=== PATIENT | male | born 1945 | race Caucasian/White ===

== ENCOUNTER 2018-08-11 07:06 | Inpatient (IN) | payer BC, MEDICARE, OTHER ==
[~2018-08-11] VITALS: Ht 175.3 cm; Wt 112.0 kg
[~2018-08-11 07:06] MED LIST: ALB6.7R INH; ALE70 PO; ASPI-715 PO; CALC500T76 PO; CIP500 PO; ERG400 PO; FLUT10SP NS; LOSA-54 PO; NITROGLYCERINE SL; OXYGEN INH; PER PO; PHENA100 PO; PRAS10TA4 PO; ROS10 PO; SYMBICORT IH; TRIO80T TOP; ZOLP-350 PO
--- NOTE | 2018-08-11 07:09 | ER Report ---
History and Physical Time Seen By MD: 07:08 HPI/ROS CHIEF COMPLAINT: Cough, fever, shortness of breath HISTORY OF PRESENT ILLNESS: Patient is a 72-year-old male with a history of COPD on baseline 2 L nasal cannula requiring increased to 5 L saturating at approximately 89% with increased work of breathing. Patient reports several days of illness however has had worsening respiratory distress, fevers starting over the last 24 hours. Patient is febrile at time of evaluation REVIEW OF SYSTEMS: Constitutional: + fever, + chills. Eyes: No discharge. ENT: No sore throat. Cardiovascular: + chest tightness no palpitations. Respiratory: + cough, + shortness of breath. Gastrointestinal: No abdominal pain, no vomiting. Genitourinary: No hematuria. Musculoskeletal: No back pain. Skin: No rashes. Neurological: No headache. Allergies: Coded Allergies: influenza virus vaccine, live atten (Verified Allergy, Unknown, 08/11/18) Home Meds Reported Medications Vit A/Vit C/Vit E/Zinc/Copper (PRESERVISION AREDS SOFTGEL) 1 Each Capsule, 1 EACH PO DAILY, CAPSULE 08/11/18 Tiotropium [place] (SPIRIVA) 18 Mcg/Cap Inh, 1 PUFF INH QDAY, INH 08/11/18 Budesonide/Formoterol Fumarate (SYMBICORT 80-4.5 MCG INHALER) 10.2 Gm Hfa.aer.ad, 2 PUFF IH BID 08/11/18 Nitroglycerin (NITROGLYCERIN) 0.4 Mg Tab.subl, 0.4 MG SL Q5MIN PRN for CHEST PAIN 08/11/18 Melatonin/Pyridoxine Hcl (B6) (MELATONIN 10 MG TABLET) 1 Each Tab.mphase, 3 EACH PO QHS 08/11/18 Amlodipine Besylate (AMLODIPINE BESYLATE) 10 Mg Tablet, 0.5 TAB PO QDAY, TAB 08/11/18 Ergocalciferol (Vitamin D2) (VITAMIN D2) 50,000 Unit Capsule, 51799 UNIT PO QWEEK, CAPSULE 08/11/18 Acetaminophen/Diphenhydramine (ACETAMINOPHEN PM CAPLET) 1 Each Tablet, 1 EACH PO QHS, TAB 08/11/18 Guaifenesin (MUCINEX) 100 Mg Gran.pack, 100 MG PO BID 08/11/18 Losartan Potassium (LOSARTAN POTASSIUM) 100 Mg Tablet, 100 MG PO QDAY 08/11/18 Prazosin Hcl (PRAZOSIN HCL) 2 Mg Capsule, 4 MG PO QHS, CAPSULE 08/11/18 Mirtazapine (MIRTAZAPINE) 15 Mg Tab.rapdis, 7.5 MG PO HS 08/11/18 Sertraline Hcl (SERTRALINE HCL) 100 Mg Tablet, 2 TAB PO QDAY, TAB 08/11/18 Atorvastatin (LIPITOR) 80 Mg Tab, 0.5 TAB PO QDAY, TAB 08/11/18 Oxygen (Oxygen) 2 L Inha, 0 INH PRN, 0 Refills 04/07/10 Calcium (Calcium) 500 Mg Tablet, 250 MG PO DAILY, 0 Refills 04/07/10 Aspirin (Aspirin) 81 Mg Tablet.dr, 81 MG PO DAILY, 0 Refills 04/07/10 Fluticasone Furoate (Veramyst) 10 Gm Eva.susp, 10 GM NS QID PRN, 0 Refills 04/07/10 Albuterol Sulfate (Proventil Hfa) 6.7 Gm Aer.w.adap, 1 - 2 PUFF INH QID PRN, 0 Refills 04/07/10 Triamcinolone Acet (Kenalog 0.1%) 80 Gm Cr, 0 TOP BID, 0 Refills APPLY TO AFFECTED AREAS 04/07/10 Discontinued Reported Medications [areds 2] No Conflict Check, 1 TAB PO BID 08/11/18 Amlodipine Besylate (AMLODIPINE BESYLATE) 5 Mg Tablet, 1 TAB PO QDAY, TAB 08/11/18 Melatonin (MELATONIN) 5 Mg Tablet, 10 MG PO HS 08/11/18 Phenazopyridine Hcl (Pyridium) 100 Mg Tab, 100 MG PO TID, #20 0 Refills 04/07/10 Oxycodone/Acetaminophen (OXYCODONE/ACETAMINOPHEN 5MG/325 MG) 5 Mg/325 Mg Tab, 1 - 2 TAB PO Q4-6H PRN, #20 0 Refills 04/07/10 Ciprofloxacin (Cipro) 500 Mg Tab, 500 MG PO BIDAC, 0 Refills 04/07/10 Prasugrel Hydrochloride (Effient) 10 Mg Tablet, 10 MG PO DAILY, 0 Refills 04/07/10 Vitamin D (Vitamin D) 400 Intlu Tab, 800 INTLU PO DAILY, 0 Refills 04/07/10 [Nitroglycerine] No Conflict Check, 0.4 MG SL, 0 Refills 04/07/10 Losartan/Hydrochlorothiazide (Losartan-Hctz 100-25 Mg Tab) 1 Each Tablet, 1 EACH PO DAILY, 0 Refills 04/07/10 Rosuvastatin Calcium (Crestor) 10 Mg Tablet, 10 MG PO DAILY, 0 Refills 04/07/10 [Symbicort] No Conflict Check, IH BID, 0 Refills 04/07/10 Alendronate Sodium (Fosamax) 70 Mg Tab, 70 MG PO QWK, #1 0 Refills 04/07/10 Zolpidem Tartrate (Ambien) 10 Mg Tablet, 10 MG PO QHS, 0 Refills 04/07/10 Hx Substance Use Disorder: No Hx Alcohol Use: Yes (3 BEERS/ WEEK) Constitutional Vital Sign - Last 24 Hours 08/11/18 08/11/18 08/11/18 08/11/18 07:06 07:11 07:14 07:18 Temp 99.7 Pulse 89 103 Resp 28 28 B/P (MAP) 157/91 (113) 157/91 Pulse Ox 90 84 O2 Delivery Nasal Cannula Nasal Cannula O2 Flow Rate 5 4.0 08/11/18 08/11/18 08/11/18 08/11/18 07:20 07:30 07:35 07:35 Pulse 99 Resp 18 B/P (MAP) 169/94 (119) 153/86 (108) Pulse Ox 91 O2 Delivery Nasal Cannula O2 Flow Rate 5.0 08/11/18 08/11/18 08/11/18 08/11/18 07:36 07:41 07:43 07:45 Pulse 82 86 104 Resp 25 22 18 B/P (MAP) 152/78 (102) Pulse Ox 90 94 O2 Delivery Nasal Cannula Nasal Cannula O2 Flow Rate 5 5 08/11/18 08/11/18 08/11/18 08:00 08:11 08:30 Pulse 93 Resp 29 B/P (MAP) 150/76 (100) 151/113 (126) Pulse Ox 91 O2 Delivery Nasal Cannula O2 Flow Rate 5 Physical Exam General Appearance: The patient is alert, has no immediate need for airway protection and no signs of toxicity. Moderate distress secondary to difficulty breathing Eyes: Pupils equal and round no pallor or injection. ENT, Mouth: Mucous membranes are moist. Respiratory: + Course breath sounds bilaterally, tachypnea Cardiovascular: Tachycardic Gastrointestinal: Abdomen is soft and non tender, no masses, bowel sounds normal. Neurological: No focal neurological deficits Skin: Warm and dry, no rashes. Musculoskeletal: Neck is supple non tender. Extremities are nontender, nonswollen and have full range of motion. DIFFERENTIAL DIAGNOSIS: After history and physical exam differential diagnosis was considered for shortness of breath including but not limited to pulmonary infectious process, COPD, asthma, pulmonary embolus and congestive heart failure. Medical Decision Making Data Points Result Diagram: 08/12/18 0549 08/12/18 0549 Laboratory Hematology Test 08/11/18 07:16 08/11/18 07:20 B-Type Natriuretic Peptide 109 pg/ml (0-100) Influenza Virus Type A (PCR) Positive (NEGATIVE) Influenza Virus Type B (PCR) Negative (NEGATIVE) Chemistry Test 08/11/18 07:16 08/11/18 07:20 B-Type Natriuretic Peptide 109 pg/ml (0-100) Influenza Virus Type A (PCR) Positive (NEGATIVE) Influenza Virus Type B (PCR) Negative (NEGATIVE) EKG/Imaging Imaging Location: [facility] Patient: Srinivas Martinez : 1945 Visit/Account:[id number] Date of Sevice: 08/11/2018 CHEST SINGLE AP Indication: Respiratory distress. Comparison: None available Findings: There are mild perihilar and infrahilar interstitial and airspace opacities seen. In the acute setting, differential would favor developing interstitial edema. No consolidation or air bronchograms. No definite pleural effusion or pneumothorax. Heart size is mildly enlarged. Atherosclerotic calcifications are seen in the aortic arch. There are multiple old healed left-sided rib fractures. IMPRESSION: 1. Mild perihilar and infrahilar interstitial and airspace opacities. Comparison with old studies would be useful. If acute, consider interstitial edema or interstitial infiltrate. 2. Mild cardiac enlargement. ED Course/Re-evaluation ED Course Patient is a 72-year-old male here with increased work of breathing, increased oxygen demand positive for influenza with tachypnea. Due to the patient's increased work of breathing, significant comorbidities, patient was admitted to hospitalist service for further optimization and care. Patient did have some improvement with nebulizer treatment. Patient was admitted to hospitalist service with Dr. Patti Mooney Decision to Disposition Date: Aug 11, 2018 Decision to Disposition Time: 11:00 Depart Departure Latest Vital Signs Vital Signs Date Time Temp Pulse Resp B/P (MAP) Pulse Ox O2 Delivery O2 Flow Rate FiO2 08/11/18 08:30 151/113 (126) 08/11/18 08:11 93 29 91 Nasal Cannula 5 08/11/18 07:14 99.7 Impression: Primary Impression: Influenza Condition: Improved Disposition: Admitted from ER DELANO BRAUN DO Aug 11, 2018 07:09
[2018-08-11] MEDS ORDERED: NS(*) 0.9% 1000 ML BAG 1,000 ML IV ONE (07:13)
[2018-08-11] MEDS ORDERED: ALBUTEROL/IPRATROPIUM 3 ML NEB NEB SCH (07:15)
[2018-08-11 07:23] LABS: PLATELET COUNT, AUTOMATED 134 K/uL (150-450)
[2018-08-11] MEDS ORDERED: MELA5TAB6 PO (07:29)
[2018-08-11] MEDS ORDERED: ATR80PT PO (07:29)
--- NOTE | 2018-08-11 07:29 | EKG ---
[place] [facility] [place] ANNETTE MULLEN : [id number] MR: [id number] V: [id number] EXAM DATE: ORDERING PHYSICIAN: DELANO BRAUN TECHNOLOGIST: OMAR Test Reason : CP, SOB Blood Pressure : / mmHG Vent. Rate : 116 BPM Atrial Rate : 116 BPM P-R Int : 148 ms QRS Dur : 092 ms QT Int : 348 ms P-R-T Axes : 040 084 076 degrees QTc Int : 483 ms Sinus tachycardia with frequent premature ventricular complexes Nonspecific ST abnormality Abnormal ECG No previous ECGs available Confirmed by JOYA ASCENCIO ([id number]) on 08/11/2018 3:59:33 PM Referred By: KADE Confirmed By:JOYA ASCENCIO
[2018-08-11] MEDS ORDERED: PRAZ2CAP26 PO (07:36)
[2018-08-11] MEDS ORDERED: SERT-181 PO (07:36)
[2018-08-11] MEDS ORDERED: AMLO-125 PO (07:36)
[2018-08-11] MEDS ORDERED: MIRT15TA11 PO (07:36)
[2018-08-11] MEDS ORDERED: LOSA100T75 PO (07:36)
--- NOTE | 2018-08-11 08:04 | RADIOLOGY IMAGING REPORT ---
[place] [facility] [place] Srinivas Martinez : 1945 MR: [id number] V: [id number] EXAM DATE: ORDERING PHYSICIAN: DELANO BRAUN TECHNOLOGIST: Location: [facility] [place] Patient: Srinivas Martinez : 1945 Visit/Account:[id number] Date of Sevice: 08/11/2018 CHEST SINGLE AP Indication: Respiratory distress. Comparison: None available Findings: There are mild perihilar and infrahilar interstitial and airspace opacities seen. In the acute settin g, differential would favor developing interstitial edema. No consolidation or air bronchograms. No definite pleural effusion or pneumothorax. Heart size is mildly enlarged. Atherosclerotic calcifications are seen in the aortic arch. There are multiple old healed left-sided rib fractures. IMPRESSION: 1. Mild perihilar and infrahilar interstitial and airspace opacities. Comparison with old studies wou ld be useful. If acute, consider interstitial edema or interstitial infiltrate. 2. Mild cardiac enlargement. Report Dictated By: Tien Flores at 08/11/2018 7:58 AM Report E-Signed By: Tien Flores at 08/11/2018 8:00 AM WSN:[id number]
[2018-08-11 08:55] VITALS: BP 145/73
[2018-08-11] MEDS ORDERED: GUAI100G4 PO (09:18)
[2018-08-11] MEDS ORDERED: BUDE10.25 IH (09:18)
[2018-08-11] MEDS ORDERED: AMLO-127 PO (09:18)
[2018-08-11] MEDS ORDERED: NITR0.4T3 SL (09:18)
[2018-08-11] MEDS ORDERED: ERGO500037 PO (09:18)
[2018-08-11] MEDS ORDERED: ACET-2708 PO (09:18)
[2018-08-11] MEDS ORDERED: TIO18R INH (09:18)
[2018-08-11] MEDS ORDERED: areds 2 PO (09:18)
[2018-08-11] MEDS ORDERED: MELA1TAB2 PO (09:18)
[2018-08-11] MEDS ORDERED: MIRTAZAPINE 15 MG TAB PO PRN (11:00)
[2018-08-11] MEDS ORDERED: VIT1CAPS34 PO (11:00)
[2018-08-11] MEDS: OSELTAMIVIR PHOS 75 MG CAP PO SCH ×2 (11:02→20:42)
[2018-08-11] MEDS: NS(*) 0.9% 1000 ML BAG 1,000 ML IV PRN (11:18)
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
[2018-08-11] MEDS: ALBUTEROL/IPRATROPIUM 3 ML NEB NEB SCH ×2 (14:04→17:17)
[2018-08-11 14:16] VITALS: BP 150/82
[2018-08-11] MEDS: ACETAMINOPHEN 325 MG TAB PO PRN (14:19)
--- NOTE | 2018-08-11 14:41 | Miscellaneous Provider Note ---
Miscellaneous Provider Note Note Repeat troponin increased from 0.053 to 0.212. Discussed with cardiology transmission superintendent at [facility]. EKGs and troponin lab work sent via fax for review. The reel system operator felt this was likely due to strain from influenza, tachycardia and hypoxia. Recommended trending troponin and if it doesn't change, monitoring him here. If his troponin continues to increase, can reconsult with cardiology. Also monitor for chest pain and trend EKGs as warranted. The patient states he had some chest pressure this am, but currently is pain free. Will monitor. JOYA SAUCEDA MD Aug 11, 2018 14:41
--- NOTE | 2018-08-11 14:59 | Antimicrobial Stewardship ---
Antimicrobial Stewardship Empiricly appropriate: Yes Comment On Tamiflu 75 mg po BID for Influenza A virus. Organism identified: Yes (Flu screen positive for Influenza A.) Renal/Hepatic dosing: Yes Comment Crcl 105 ml/min (AjBW) so dose appropriate. Comment Possible cardiac issues (troponin elevated). Most likely due to Influenza but if true cardiac event may want to reevaluate Tamiflu as it should be used with caution in patients with cardiac disorders, Determine standard duration: usually 5 days JANE CALDERÓN Aug 11, 2018 14:59
--- NOTE | 2018-08-11 15:11 | RADIOLOGY IMAGING REPORT ---
[place] [facility] [place] Srinivas Martinez : 1945 MR: [id number] V: [id number] EXAM DATE: ORDERING PHYSICIAN: JOYA SAUCEDA TECHNOLOGIST: Location: Patient: Srinivas Martinez : 1945 Visit/Account:[id number] Date of Sevice: 08/11/2018 Examination: CHEST SINGLE AP Comparison: Earlier the same day. History: Worsening influenza with increased oxygen needs. Findings: Cardiac and hilar contours prominent but unchanged. Diffuse interstitial thickening and peribronchial inflammation is redemonstrated and minimally change d since earlier today. Indistinct regions of increased parenchymal density at both lung bases as befo re. No definite new or enlarging consolidation. No pneumothorax or effusion. Osseous structures are intact. IMPRESSION: Unchanged chest. Given the history, diffuse interstitial and peribronchial inflammation is suggestive of an acute or acute on chronic bronchitis. Indistinct regions of patchy density at the lung bases i s favored to be atelectasis although correlation with any evidence of a developing superimposed pneum onia is recommended. Report Dictated By: Aleksandr Sanchez MD at 08/11/2018 3:04 PM Report E-Signed By: Aleksandr Sanchez MD at 08/11/2018 3:07 PM WSN:[id number]
[2018-08-11] MEDS ORDERED: IBUPROFEN 200 MG TAB PO PRN (15:20)
--- NOTE | 2018-08-11 15:53 | EKG ---
FACILITY: [facility] PATIENT NAME: ANNETTE MULLEN : [id number] MR: [id number] V: [id number] EXAM DATE: ORDERING PHYSICIAN: JOYA SAUCEDA TECHNOLOGIST: OMAR Test Reason : INCREASED TROPONIN Blood Pressure : / mmHG Vent. Rate : 095 BPM Atrial Rate : 095 BPM P-R Int : 144 ms QRS Dur : 092 ms QT Int : 370 ms P-R-T Axes : 033 087 079 degrees QTc Int : 464 ms Sinus rhythm with premature atrial complexes Nonspecific ST abnormality Abnormal ECG When compared with ECG of 11-AUG-2018 07:12, premature ventricular complexes are no longer present premature atrial complexes are now present Confirmed by JOYA ASCENCIO ([id number]) on 08/11/2018 3:57:37 PM Referred By: KOMAL Confirmed By:JOYA ASCENCIO
[2018-08-11] MEDS ORDERED: AZITHROMYCIN(*) 500 MG 500 MG in NS(*) 0.9% 250 ML BAG 250 ML IVPB SCH (16:00)
[2018-08-11] MEDS ORDERED: cefTRIAXone 1 GM VIAL IVP SCH (17:00)
[2018-08-11] MEDS: BUDESO/FORMOT 80/4.5 MCG 6.9GM INH SCH (17:17)
[2018-08-11 19:29] VITALS: BP 132/70
--- NOTE | 2018-08-11 19:59 | Miscellaneous Provider Note ---
Miscellaneous Provider Note Note Repeat troponin at 1900 trending down at 0.196. Will repeat a troponin with am labs. The patient is feeling better and denies chest pain. Continue to monitor closely. He does want to be a full code. JOYA SAUCEDA MD Aug 11, 2018 19:59
[2018-08-11] MEDS: PRAZOSIN HCL 1 MG CAP PO SCH (20:42)
[2018-08-11] MEDS: ATORVASTATIN 40 MG TAB PO SCH (20:42)
[2018-08-11] MEDS: MELATONIN 3 MG TAB PO SCH (20:48)
[2018-08-11] MEDS: LEVALBUTEROL 0.63 MG/3 ML NEB NEB PRN (20:59)
[2018-08-11 23:05] VITALS: BP 141/76
[2018-08-12] MEDS: ACETAMINOPHEN 325 MG TAB PO PRN ×2 (00:23→19:20)
[2018-08-12] MEDS: LEVALBUTEROL 0.63 MG/3 ML NEB NEB PRN ×3 (00:27→19:47)
[2018-08-12] MEDS: NS(*) 0.9% 1000 ML BAG 1,000 ML IV PRN (02:59)
[2018-08-12 03:00] VITALS: BP 112/66
[2018-08-12] MEDS: BUDESO/FORMOT 80/4.5 MCG 6.9GM INH SCH ×2 (05:22→17:09)
[2018-08-12 06:11] LABS: PLATELET COUNT, AUTOMATED 105 K/uL (150-450)
[2018-08-12 06:56] VITALS: BP 107/64
[2018-08-12] MEDS: amLODIPine BESYL(*) 5 MG TAB PO SCH (09:00)
[2018-08-12] MEDS: CEFDINIR 300 MG CAP PO SCH ×2 (09:10→20:56)
[2018-08-12] MEDS: ASPIRIN 81 MG ENTERIC COATED PO SCH (09:10)
[2018-08-12] MEDS: AZITHROMYCIN 250 MG TAB PO SCH (09:10)
[2018-08-12] MEDS: SERTRALINE HCL 50 MG TAB PO SCH (09:10)
[2018-08-12] MEDS: CALCIUM OYSTER SHELL 500MG TAB PO SCH (09:10)
[2018-08-12] MEDS: LOSARTAN POTASSIUM 50 MG TAB PO SCH (09:10)
[2018-08-12] MEDS: ENOXAPARIN 40 MG/0.4ML SYR SC SCH (09:11)
[2018-08-12] MEDS: BETA-CAROTENE(A) & E/MIN TAB PO SCH (09:11)
[2018-08-12] MEDS: OSELTAMIVIR PHOS 75 MG CAP PO SCH ×2 (09:11→20:56)
[2018-08-12] MEDS: FLUTICASONE PROP 0.05% 16 GM SCH (09:12)
--- NOTE | 2018-08-12 09:24 | Hospitalist Progress Note ---
Subjective Progress Notes Subjective This patient was admitted for pneumonia and influenza. He had no acute events overnight. Patient Complains of: Cardiovascular: No: Chest Pain Respiratory: No: Shortness of Breath Physical Exam Vital Signs Date Time Temp Pulse Resp B/P (MAP) Pulse Ox O2 Delivery O2 Flow Rate FiO2 08/12/18 08:28 93 Nasal Cannula 4.0 08/12/18 06:56 97.8 88 18 107/64 (78) 08/12/18 01:00 40.0 Intake and Output 08/12/18 07:00 Intake Total 2030 ml Balance 2030 ml Intake Oral 790 ml IV Total 1240 ml # Voids 3 # Emes[place] 1 Cardiovascular: Regular Rate and Rhythm Respiratory: Clear to Auscultation Result Diagram: 08/12/18 0549 08/12/1849 Assessment and Plan Problems: (1) FLU DUE TO IDENT NOVEL INFLUENZA A VIRUS W OTH RESP MANIFEST Status: Acute Assessment & Plan: He did test positive for influenza A. He has been started on Tamiflu. (2) Bacterial pneumonia Assessment & Plan: A chest x-ray did show bilateral hilar infiltrates. He was started on empiric treatment with ceftriaxone and azithromycin. We have converted him to oral treatment with cefdinir and azithromycin. (3) Elevated troponin Status: Acute Assessment & Plan: He did have a mild elevation of his troponin, but no significant EKG changes. His levels trended down. This was likely secondary to the strain of his illness. He may be considered for outpatient stress testing when he returns to [place]. (4) Hypoxia Status: Acute Assessment & Plan: O2 to keep sats 90% or greater. (5) COPD (chronic obstructive pulmonary disease) Status: Chronic Assessment & Plan: Continue Oxygen, Symbicort and Duonebs. (6) CAD (coronary artery disease) Status: Chronic Assessment & Plan: Continue ASA and losartan. (7) Hyperlipidemia Status: Chronic Assessment & Plan: Continue atorvastatin. (8) Hypertension Status: Chronic Assessment & Plan: Continue amlodipine, losartan and prazosin. (9) GREGORY on CPAP Status: Chronic Assessment & Plan: Will continue CPAP with O2. Exam Sepsis Risk: No Definite Risk KATHY PINA DO Aug 12, 2018 09:24
[2018-08-12] MEDS: TIOTROPIUM BROM INH 18 MCG/CAP INH SCH (11:11)
[2018-08-12 14:51] VITALS: BP 121/63
[2018-08-12 18:51] VITALS: BP 124/67
[2018-08-12] MEDS: ATORVASTATIN 40 MG TAB PO SCH (20:57)
[2018-08-12] MEDS: PRAZOSIN HCL 1 MG CAP PO SCH (20:58)
[2018-08-12] MEDS: MELATONIN 3 MG TAB PO SCH (20:59)
[2018-08-13 03:39] VITALS: BP 121/64
[2018-08-13] MEDS: BUDESO/FORMOT 80/4.5 MCG 6.9GM INH SCH ×2 (05:22→17:04)
[2018-08-13 07:47] VITALS: BP 153/64
[2018-08-13 08:50] LABS: PLATELET COUNT, AUTOMATED 110 K/uL (150-450)
[2018-08-13] MEDS: BETA-CAROTENE(A) & E/MIN TAB PO SCH (09:12)
[2018-08-13] MEDS: OSELTAMIVIR PHOS 75 MG CAP PO SCH ×2 (09:12→20:56)
[2018-08-13] MEDS: CALCIUM OYSTER SHELL 500MG TAB PO SCH (09:12)
[2018-08-13] MEDS: AZITHROMYCIN 250 MG TAB PO SCH (09:12)
[2018-08-13] MEDS: LOSARTAN POTASSIUM 50 MG TAB PO SCH (09:12)
[2018-08-13] MEDS: ASPIRIN 81 MG ENTERIC COATED PO SCH (09:12)
[2018-08-13] MEDS: CEFDINIR 300 MG CAP PO SCH ×2 (09:13→20:55)
[2018-08-13] MEDS: SERTRALINE HCL 50 MG TAB PO SCH (09:13)
[2018-08-13] MEDS: amLODIPine BESYL(*) 5 MG TAB PO SCH (09:13)
[2018-08-13] MEDS: predniSONE 20 MG TAB PO SCH (09:13)
[2018-08-13] MEDS: ENOXAPARIN 40 MG/0.4ML SYR SC SCH (09:14)
[2018-08-13] MEDS: FLUTICASONE PROP 0.05% 16 GM SCH (09:14)
--- NOTE | 2018-08-13 09:46 | Hospitalist Progress Note ---
Subjective Progress Notes Subjective He was admitted with Influenza. He has complaints of SOB this morning. He is still coughing up blood. Patient Complains of: Cardiovascular: No: Chest Pain Respiratory: No: Shortness of Breath Physical Exam Vital Signs Date Time Temp Pulse Resp B/P (MAP) Pulse Ox O2 Delivery O2 Flow Rate FiO2 08/13/18 03:39 98.4 72 20 121/64 (83) 94 Nasal Cannula 4.0 08/12/18 01:00 40.0 Intake and Output 08/13/18 07:00 Intake Total 686 ml Balance 686 ml Intake Oral 686 ml # Voids 2 General Appearance: Alert, Awake, No Acute Distress, Afebrile Cardiovascular: Regular Rate and Rhythm Respiratory: Other (expiratory wheezes, left base crackles) GI: Soft and Non-Tender Extremities: Warm, Perfused; No Edema Psych: Alert & Oriented X3, Appropriate Mood & Affect Result Diagram: 08/13/1884108/13/18841 Assessment and Plan Problems: (1) FLU DUE TO IDENT NOVEL INFLUENZA A VIRUS W OTH RESP MANIFEST Status: Acute Assessment & Plan: He did test positive for influenza A. He has been started on Tamiflu. (2) Bacterial pneumonia Assessment & Plan: A chest x-ray did show bilateral hilar infiltrates. He was started on empiric treatment with ceftriaxone and azithromycin. We have converted him to oral treatment with cefdinir and azithromycin. (3) Elevated troponin Status: Acute Assessment & Plan: He did have a mild elevation of his troponin, but no significant EKG changes. His levels trended down. This was likely secondary to the strain of his illness. He may be considered for outpatient stress testing when he returns to [place]. (4) Hypoxia Status: Acute Assessment & Plan: O2 to keep sats 90% or greater. (5) COPD (chronic obstructive pulmonary disease) Status: Chronic Assessment & Plan: Continue Oxygen, Symbicort and Duonebs. He is wheezing this morning, we will add steroids to help with inflammation. (6) CAD (coronary artery disease) Status: Chronic Assessment & Plan: Continue ASA and losartan. (7) Hyperlipidemia Status: Chronic Assessment & Plan: Continue atorvastatin. (8) Hypertension Status: Chronic Assessment & Plan: Continue amlodipine, losartan and prazosin. (9) GREGORY on CPAP Status: Chronic Assessment & Plan: Will continue CPAP with O2. Exam Sepsis Risk: No Definite Risk MG REILLY Aug 13, 2018 09:46
[2018-08-13] MEDS: TIOTROPIUM BROM INH 18 MCG/CAP INH SCH (12:25)
[2018-08-13 12:46] VITALS: BP 165/84
[2018-08-13] MEDS: LEVALBUTEROL 0.63 MG/3 ML NEB NEB PRN (17:04)
[2018-08-13 19:13] VITALS: BP 166/94
[2018-08-13] MEDS: MELATONIN 3 MG TAB PO SCH (20:55)
[2018-08-13] MEDS: ATORVASTATIN 40 MG TAB PO SCH (20:55)
[2018-08-13] MEDS: PRAZOSIN HCL 1 MG CAP PO SCH (20:56)
[2018-08-13 23:47] VITALS: BP 118/68
[2018-08-14 03:33] VITALS: BP 163/74
[2018-08-14] MEDS: BUDESO/FORMOT 80/4.5 MCG 6.9GM INH SCH (05:18)
[2018-08-14] MEDS: LEVALBUTEROL 0.63 MG/3 ML NEB NEB PRN (05:19)
[2018-08-14 07:46] VITALS: BP 146/74
[2018-08-14] MEDS: OSELTAMIVIR PHOS 75 MG CAP PO SCH (08:17)
[2018-08-14] MEDS: SERTRALINE HCL 50 MG TAB PO SCH (08:17)
[2018-08-14] MEDS: LOSARTAN POTASSIUM 50 MG TAB PO SCH (08:17)
[2018-08-14] MEDS: CEFDINIR 300 MG CAP PO SCH (08:17)
[2018-08-14] MEDS: FLUTICASONE PROP 0.05% 16 GM SCH (08:17)
[2018-08-14] MEDS: CALCIUM OYSTER SHELL 500MG TAB PO SCH (08:17)
[2018-08-14] MEDS: BETA-CAROTENE(A) & E/MIN TAB PO SCH (08:17)
[2018-08-14] MEDS: ENOXAPARIN 40 MG/0.4ML SYR SC SCH (08:18)
[2018-08-14] MEDS: predniSONE 20 MG TAB PO SCH (08:18)
[2018-08-14] MEDS: AZITHROMYCIN 250 MG TAB PO SCH (08:18)
[2018-08-14] MEDS: ASPIRIN 81 MG ENTERIC COATED PO SCH (08:18)
[2018-08-14] MEDS: amLODIPine BESYL(*) 5 MG TAB PO SCH (08:18)
[2018-08-14] MEDS ORDERED: AZIT-18 PO (09:34)
[2018-08-14] MEDS ORDERED: PRED20TA6 PO (09:34)
[2018-08-14] MEDS ORDERED: OSE75 PO (09:34)
[2018-08-14] MEDS ORDERED: CEF300 PO (09:34)
--- NOTE | 2018-08-14 09:38 | Hospitalist Depart ---
Discharge Summary Reason for Hosp/Final Diag: (1) FLU DUE TO IDENT NOVEL INFLUENZA A VIRUS W OTH RESP MANIFEST Status: Acute Hospital Course & Plan: He did test positive for influenza A. He has been started on Tamiflu. (2) Bacterial pneumonia Hospital Course & Plan: A chest x-ray did show bilateral hilar infiltrates. He was started on empiric treatment with ceftriaxone and azithromycin. We have converted him to oral treatment with cefdinir and azithromycin. (3) Elevated troponin Status: Acute Hospital Course & Plan: He did have a mild elevation of his troponin, but no significant EKG changes. His levels trended down. This was likely secondary to the strain of his illness. He will follow up as an outpatient for stress testing when he returns to [place]. (4) Hypoxia Status: Acute Hospital Course & Plan: O2 to keep sats 90% or greater. (5) COPD (chronic obstructive pulmonary disease) Status: Chronic Hospital Course & Plan: Continue Oxygen, Symbicort and Duonebs. He was wheezing 08/13, we added steroids to help with inflammation. (6) CAD (coronary artery disease) Status: Chronic Hospital Course & Plan: Continue ASA and losartan. (7) Hyperlipidemia Status: Chronic Hospital Course & Plan: Continue atorvastatin. (8) Hypertension Status: Chronic Hospital Course & Plan: Continue amlodipine, losartan and prazosin. (9) GREGORY on CPAP Status: Chronic Hospital Course & Plan: Will continue CPAP with O2. Departure Latest Vital Signs Vital Signs 08/12/18 08/14/18 08/14/18 08/14/18 01:00 05:20 07:46 08:07 Temp 98.1 Pulse 91 Resp 20 B/P (MAP) 146/74 (98) Pulse Ox 95 O2 Delivery Nasal Cannula O2 Flow Rate 3.0 FiO2 40.0 Weight (Pounds): 247 Result Diagram: 08/13/18 0842 08/13/18841 Condition: Improved Discharge: Home, Self Care Discharge Instructions Home Meds Active Scripts Azithromycin 250 Mg Tab (AZITHROMYCIN 250 MG TAB) 250 Mg Tablet, 250 MG PO QDAY for 2 Days, #2 TAB Prov:MG REILLYP 08/14/18 Oseltamivir Phosphate (TAMIFLU) 75 Mg Cap, 75 MG PO BID for 5 Days, #10 CAP Prov:MG REILLYP 08/14/18 Prednisone (PREDNISONE) 20 Mg Tablet, 40 MG PO QDAY for 3 Days, #6 TAB Prov:MG REILLY WINDOW [employer]ORATOR 08/14/18 Cefdinir 300 Mg Cap (OMNICEF 300 MG CAP (OR EQUIV)) 300 Mg Cap, 300 MG PO BID, #10 CAP Prov:MG REILLY WINDOW DECORATOR 08/14/18 Reported Medications Vit A/Vit C/Vit E/Zinc/Copper (PRESERVISION AREDS SOFTGEL) 1 Each Capsule, 1 EACH PO DAILY, CAPSULE 08/11/18 Tiotropium [place] (SPIRIVA) 18 Mcg/Cap Inh, 1 PUFF INH QDAY, INH 08/11/18 Budesonide/Formoterol Fumarate (SYMBICORT 80-4.5 MCG INHALER) 10.2 Gm Hfa.aer.ad, 2 PUFF IH BID 08/11/18 Nitroglycerin (NITROGLYCERIN) 0.4 Mg Tab.subl, 0.4 MG SL Q5MIN PRN for CHEST PAIN 08/11/18 Melatonin/Pyridoxine Hcl (B6) (MELATONIN 10 MG TABLET) 1 Each Tab.mphase, 3 EACH PO QHS 08/11/18 Amlodipine Besylate (AMLODIPINE BESYLATE) 10 Mg Tablet, 0.5 TAB PO QDAY, TAB 08/11/18 Ergocalciferol (Vitamin D2) (VITAMIN D2) 50,000 Unit Capsule, 12738 UNIT PO QWEEK, CAPSULE 08/11/18 Acetaminophen/Diphenhydramine (ACETAMINOPHEN PM CAPLET) 1 Each Tablet, 1 EACH PO QHS, TAB 08/11/18 Guaifenesin (MUCINEX) 100 Mg Gran.pack, 100 MG PO BID 08/11/18 Losartan Potassium (LOSARTAN POTASSIUM) 100 Mg Tablet, 100 MG PO QDAY 08/11/18 Prazosin Hcl (PRAZOSIN HCL) 2 Mg Capsule, 4 MG PO QHS, CAPSULE 08/11/18 Mirtazapine (MIRTAZAPINE) 15 Mg Tab.rapdis, 7.5 MG PO HS 08/11/18 Sertraline Hcl (SERTRALINE HCL) 100 Mg Tablet, 2 TAB PO QDAY, TAB 08/11/18 Atorvastatin (LIPITOR) 80 Mg Tab, 0.5 TAB PO QDAY, TAB 08/11/18 Oxygen (Oxygen) 2 L Inha, 0 INH PRN, 0 Refills 04/07/10 Calcium (Calcium) 500 Mg Tablet, 250 MG PO DAILY, 0 Refills 04/07/10 Aspirin (Aspirin) 81 Mg Tablet.dr, 81 MG PO DAILY, 0 Refills 04/07/10 Fluticasone Furoate (Veramyst) 10 Gm [place].susp, 10 GM NS QID PRN, 0 Refills 04/07/10 Albuterol Sulfate (Proventil Hfa) 6.7 Gm Aer.w.adap, 1 - 2 PUFF INH QID PRN, 0 Refills 04/07/10 Triamcinolone Acet (Kenalog 0.1%) 80 Gm Cr, 0 TOP BID, 0 Refills APPLY TO AFFECTED AREAS 04/07/10 Discontinued Reported Medications [areds 2] No Conflict Check, 1 TAB PO BID 08/11/18 Amlodipine Besylate (AMLODIPINE BESYLATE) 5 Mg Tablet, 1 TAB PO QDAY, TAB 08/11/18 Melatonin (MELATONIN) 5 Mg Tablet, 10 MG PO HS 08/11/18 Phenazopyridine Hcl (Pyridium) 100 Mg Tab, 100 MG PO TID, #20 0 Refills 04/07/10 Oxycodone/Acetaminophen (OXYCODONE/ACETAMINOPHEN 5MG/325 MG) 5 Mg/325 Mg Tab, 1 - 2 TAB PO Q4-6H PRN, #20 0 Refills 04/07/10 Ciprofloxacin (Cipro) 500 Mg Tab, 500 MG PO BIDAC, 0 Refills 04/07/10 Prasugrel Hydrochloride (Effient) 10 Mg Tablet, 10 MG PO DAILY, 0 Refills 04/07/10 Vitamin D (Vitamin D) 400 Intlu Tab, 800 INTLU PO DAILY, 0 Refills 04/07/10 [Nitroglycerine] No Conflict Check, 0.4 MG SL, 0 Refills 04/07/10 Losartan/Hydrochlorothiazide (Losartan-Hctz 100-25 Mg Tab) 1 Each Tablet, 1 EACH PO DAILY, 0 Refills 04/07/10 Rosuvastatin Calcium (Crestor) 10 Mg Tablet, 10 MG PO DAILY, 0 Refills 04/07/10 [Symbicort] No Conflict Check, IH BID, 0 Refills 04/07/10 Alendronate Sodium (Fosamax) 70 Mg Tab, 70 MG PO QWK, #1 0 Refills 04/07/10 Zolpidem Tartrate (Ambien) 10 Mg Tablet, 10 MG PO QHS, 0 Refills 04/07/10 Diet: Regular Activity: As Tolerated Special Instructions: Increase your oxygen to 3L during the day. Follow up when you get home for stress test. Your troponin was elevated upon admission to hospital. Take medications as prescribed. Increase fluids and rest. Venous Thromboembolism Antithrombotics Is Pt On Any Antithrombotics?: Yes MG REILLY Aug 14, 2018 09:38
[2018-08-14] MEDS: TIOTROPIUM BROM INH 18 MCG/CAP INH SCH (11:30)
== END 2018-08-14 12:23 | disposition home or self-care (01) | DRG 194 ==
LOC: ER 07:31 → MED 08:32
PROVIDERS: ADMIT Internal Medicine; ATTEND Internal Medicine
PROC: 5A09357 Assistance with Respiratory Ventilation, Less than 24 Consecutive Hours, Continuous Positive Airway Pressure (ICD-10-PCS; principal; 2018-08-11)
DX: J09.X1 Influenza due to identified novel influenza A virus with pneumonia (principal); J44.0 Chronic obstructive pulmonary disease with (acute) lower respiratory infection; J15.9 Unspecified bacterial pneumonia; R09.02 Hypoxemia; I25.10 Atherosclerotic heart disease of native coronary artery without angina pectoris; E78.5 Hyperlipidemia, unspecified; I10 Essential (primary) hypertension; G47.33 Obstructive sleep apnea (adult) (pediatric); R00.0 Tachycardia, unspecified; I25.2 Old myocardial infarction; Z95.5 Presence of coronary angioplasty implant and graft; Z88.7 Allergy status to serum and vaccine; Z87.891 Personal history of nicotine dependence; Z09 Encounter for follow-up examination after completed treatment for conditions other than malignant neoplasm; Z99.81 Dependence on supplemental oxygen
CPT/HCPCS: 36415; 71045; 82040; 82247; 82310; 82374; 82435; 82565; 82947; 83880; 84075; 84132; 84155; 84295; 84450; 84460; 84484; 84520; 85025; 87502; 93005; 94640; 94660; 94667; 94668; 96360; 99284; J0456; J0696; J1650; J3535; J7030; J7050; J7512; J7614